=== PATIENT | female | born 1960 | race Caucasian/White ===

== ENCOUNTER 2023-08-03 13:18 | Outpatient (AMB) | payer OTHER, SELFPAY ==
--- NOTE | 2023-08-03 14:20 | MHC.OFFWIV ---
Intake Vital Signs 08/03/23 14:21 Height 5 ft 2 in Weight 182 lb BMI 33.3 BP 134/90 H Blood Pressure Location Lt brachial Position Sitting Pulse 72 Pulse Source Pulse Oximeter Temp 98.3 F Temp Source Temporal Artery Scan Pulse Oximetry (%) 96 Oxygen Delivery Method Room Air Intake Visit Reasons: [employer], sinus congestion, left ear pain ([phone]) Intake Note: pt is here today for sius congestion lft ear pain started 2 weeks ago Patient Tobacco Use Status: Current everyday Tobacco user Allergies No Known Allergies Allergy (Verified 08/03/23 14:20) Medication List - Last Reconciled 08/03/23 by Kassie Dwyer NP amoxicillin 500 mg PO BID 10 days benzonatate 100 mg PO TID Do you need a note to return to daycare/school/sports/work: No HPI HPI Comments History of Present Illness Details 63 y/o female presents to walk in clinic with c/o Sinus congestion, cough and left ear pain. Reports that symptoms started 2 months ago. PFSH Social History Patient Tobacco Use Status: Current everyday Tobacco user Review of Systems Const All systems reviewed & are unremarkable except as noted in HPI and below Physical Exam Vital Signs: Last Vital Signs Temp 98.3 F 08/03/23 14:21 Pulse 72 08/03/23 14:21 BP 134/90 H 08/03/23 14:21 Pulse Ox 96 08/03/23 14:21 Oxygen Delivery Method Room Air 08/03/23 14:21 BMI result Body Mass Index 33.3 Const General: no acute distress HEENT Head: Yes normocephalic Ears: external ears normal and TM's normal bilaterally General nose exam: Abnormal mucous membranes and turbinates present boggy and erythematous and Nasal discharge present Face and sinus: Yes sinus tenderness Mouth: oropharynx normal and moist mucous membranes Throat: Yes postnasal drainage Resp Effort & Inspection: normal respiratory effort Auscultation: clear to auscultation bilaterally Cardio Rate: regular rate Rhythm: regular rhythm Assessment & Plan Assessment & Plan (1) Acute rhinosinusitis: Code(s): J01.90 - Acute sinusitis, unspecified Plan: - Abx Amoxici - Rest, warm fluids. - OTC cold remedies. Medications: New benzonatate 100 mg PO TID 30 caps 0RF amoxicillin 500 mg PO BID 10 days 20 caps 0RF Coding Level of Care Code Est Pt Level 3 (55688) Diagnoses Acute rhinosinusitis J01.90 Time Spent (min) 15
[2023-08-03 14:21] VITALS: BP 134/90; PULSE 72; TEMP 36.8; O2SAT 96; BMI 33.3
== END 2023-08-03 14:55 | disposition home or self-care (01) ==
PROVIDERS: Visit Provider Nurse Practitioner Family
DX: J01.90 Acute sinusitis, unspecified (principal)
CPT/HCPCS: 99213

== ENCOUNTER 2023-10-04 16:14 | Outpatient (AMB) | payer OTHER, SELFPAY ==
[2023-10-04 16:16] VITALS: BP 140/88; PULSE 91; TEMP 36.4; O2SAT 97; BMI 32.8
--- NOTE | 2023-10-04 16:16 | AM.OFFWIN_ITS ---
Intake Vital Signs 10/04/23 16:16 Height 5 ft 2 in Weight 179 lb 6 oz BMI 32.8 BP 140/88 H Blood Pressure Location Rt brachial Position Sitting Pulse 91 Pulse Source Pulse Oximeter Temp 97.6 F Temp Source Oral Pulse Oximetry (%) 97 Oxygen Delivery Method Room Air Intake Visit Reasons: EP ear infection/pain Intake Note: pt is here for left ear pain and pt says her PCP saw something white in her ear inside of her and they could not get it out and pt says she has had bad pain pt says she has had the pain since Jun and came here and was seen in Jul for this Patient Tobacco Use Status: Current everyday Tobacco user Allergies carisoprodol [From Soma] Allergy (Intermediate, Verified 10/04/23 16:20) Hives HPI HPI Comments History of Present Illness Details 63 y/o female patient who presents [facility] with c/o left ear pain x 2 months. Pt reports that she was seen by PCP Last Monday and they saw white substance inside. PCP attempted to remove it with Trizzers but could not due to Pt being uncomfortable. Pt worried the substance might migrate to her brain and . Pt very anxious and crying in the office during visit. Pt has a scheduled appointment with ENT 10/17/23. PFSH Social History Patient Tobacco Use Status: Current everyday Tobacco user Review of Systems Const All systems reviewed & are unremarkable except as noted in HPI and below Physical Exam Vital Signs: Last Vital Signs Temp 97.6 F 10/04/23 16:16 Pulse 91 10/04/23 16:16 BP 140/88 H 10/04/23 16:16 Pulse Ox 97 10/04/23 16:16 Oxygen Delivery Method Room Air 10/04/23 16:16 BMI result Body Mass Index 32.8 Const General: no acute distress Nutritional Appearance: obese Orientation/consciousness: patient oriented x3 HEENT Head: Yes normocephalic Ears: hearing grossly normal bilaterally, external ears normal, TM's normal bilaterally (Both ears clean and unable to visualize the substance ) and EAC's normal General nose exam: No nasal discharge present and Abnormal mucous membranes and turbinates present pale Mouth: moist mucous membranes Throat: Yes posterior oropharynx normal Neuro General: patient oriented x3, gait normal and moves all extremities Psych Speech and movement: Normal speech and movement present Affect: Labile affect present, Sad affect present and Anxious affect present Assessment & Plan Assessment & Plan (1) Ear pain, left: Code(s): H92.02 - Otalgia, left ear Plan: - Administered Ibuprofen 600 mg in the office - Unable to visualize the substance in question. - F/U with ENT as scheduled. Orders: Orders AMB Ibuprofen Adult Dose Today H92.02 - Otalgia, left ear Medications: New ibuprofen 200 mg PO ONCE 3 tabs 0RF ear pain H92.02 - Otalgia, left ear ibuprofen 600 mg PO Q6H PRN 30 tabs 0RF pain H92.02 - Otalgia, left ear Coding Level of Care Code Est Pt Level 3 (63372) Diagnoses Ear pain, left H92.02 Time Spent (min) 15
== END 2023-10-04 17:05 | disposition home or self-care (01) ==
PROVIDERS: Visit Provider Nurse Practitioner Family
DX: H92.02 Otalgia, left ear (principal)
CPT/HCPCS: 99213

== ENCOUNTER 2023-11-21 14:33 | Outpatient (REF) | payer OTHER, MEDICAID, SELFPAY ==
--- NOTE | ~2023-11-21 | CT_ITS ---
EXAMINATION: CT SOFT TISSUE NECK WITH CONTRAST CLINICAL INFORMATION: Left ear otalgia. COMPARISON: None available. TECHNIQUE: Following intravenous administration of 60 mL of Omnipaque 350 contrast, helical imaging was performed in the axial plane with generation of coronal and sagittal reformatted images. This CT examination was performed using dose optimization techniques as appropriate, variously including the following: *Automated exposure control *Adjustment of mA and/or kV according to patient size (this includes techniques or standardized protocols for targeted exams where dose is matched to indication/reason for exam; i.e. extremities or head) *Use of iterative reconstruction technique DLP: 355 mGy-cm FINDINGS: A 1.5 cm CC by 2.4 cm AP erosive defect is visible in the anteroinferior cartilaginous nasal septum with some adjacent surrounding wispy soft tissue density. Nonspecific soft tissue partially opacifies the lower left nasal passage posterior to the site of the defect. Additionally, there is asymmetric enhancement of the anterior portion of the left inferior turbinate compared to the right inferior turbinate. Similar nodular soft tissue enhancement is visible along the chou of the anteroinferior nasal passages bilaterally near the nasal vestibule. No contour abnormality or pathologic enhancement is seen within the oral cavity, pharyngeal mucosal space, or larynx. Small aerated internal laryngoceles are visible bilaterally. Postinflammatory tonsillar calcifications are visible in the left oropharyngeal wall. The parotid and submandibular glands appear normal. No pathologically enlarged cervical lymph nodes are visible. The carotid sheath vasculature opacifies normally with mild wall calcifications at the carotid bifurcations. The periauricular soft tissues appear normal. There are mild degenerative changes in the left temporomandibular joint. There is dystrophic calcification in the isthmus of the thyroid gland measuring 1.4 cm in diameter, for which no further imaging follow-up is indicated. Mild wall calcifications visible in the aortic arch. The visualized mediastinum is otherwise unremarkable. The imaged axillae appear normal. The visualized portions of the lungs are fairly well aerated with scattered mild subsegmental atelectatic changes. There is moderate spondylosis, particularly at the C5-C6 and C6-C7 levels with multilevel hypertrophic facet arthropathy. CT/CT soft tissue neck w IV con IMPRESSION: Erosive defect in the anteroinferior cartilaginous nasal septum with adjacent nodular soft tissue enhancement involving the anteroinferior chou of the nasal passages and the anterior portion of the left inferior turbinate. Additional nonspecific soft tissue opacifying the anteroinferior left nasal passage. Although this may be due to an inflammatory process, as can be seen in granulomatosis with polyangiitis, a malignancy such as NK/T-cell lymphoma could have a similar imaging appearance. Recommend correlation with findings on direct visual inspection.
[2023-11-22 16:26] LABS: Creatinine POC 0.8 mg/dL (0.5-1.4); GFR POC 60
== END 2023-11-21 14:34 | disposition home or self-care (01) ==
LOC: HO.CT 14:33
PROVIDERS: PCP Nurse Practitioner Family; Visit Provider Physician Assistant
DX: H92.02 Otalgia, left ear (principal)
CPT/HCPCS: 70491; 82565